=== PATIENT | male | born 1965 | race Caucasian/White ===

== ENCOUNTER 2020-04-15 12:24 | Emergency (ER) | payer SELFPAY ==
--- NOTE | 2020-04-15 13:56 | CT ---
CT cervical spine Technique: Multiple axial sections were obtained from above C1 inferiorly to the top of T2. Reconstructed sagittal and coronal images were reviewed. Findings: Degenerative change is noted between the dens and anterior arch of C1. Minimal disc space narrowing at C3-4 and C4-5. Vertebral body heights are maintained. Scattered anterior osteophytes are seen. Minimal scattered posterior osteophytes are noted. Ligamentum nuchal calcification is seen. Minimal scattered degenerative change within the apophyseal joints. No bony central or bony neural foraminal stenosis is seen. No cervical spine fracture is seen. No abnormal subluxation is appreciated. Impression: 1. Mild diffuse degenerative change. 2. Nothing acute is appreciated. Diagnostic code #2 This report was dictated in MDT
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
--- NOTE | 2020-04-15 14:12 | CR ---
Lumbar spine: AP and lateral views lumbar spine were obtained as well as coned-down lateral view centered to the lumbosacral junction. Comparison: No prior lumbar spine imaging. Mild anterior wedge deformity is noted of L1. Age of this is indeterminate. Lesser anterior wedging is noted of T11, T10 and T9 which are felt to be old. Scattered endplate osteophytes are seen. Mild disc space narrowing noted at T11-12. Other disc spaces within the lumbar spine are maintained. Pedicles are intact. Transverse and spinous processes are intact. Sacroiliac joints are normal. Impression: 1. Mild anterior wedge deformity of L1. Age of this is indeterminate. MRI would be needed to look for bone marrow edema to determine age of this finding if clinically needed. 2. Several other compression deformities within the lower thoracic spine which are likely old. 3. Mild scattered degenerative change. Diagnostic code #3 This report was dictated in MDT
== END 2020-04-15 14:41 | disposition home or self-care (01) ==
LOC: JD.ED 12:24
DX: S32.019A Unspecified fracture of first lumbar vertebra, initial encounter for closed fracture (principal); S16.1XXA Strain of muscle, fascia and tendon at neck level, initial encounter; R10.9 Unspecified abdominal pain; F17.210 Nicotine dependence, cigarettes, uncomplicated; Y04.8XXA Assault by other bodily force, initial encounter
CPT/HCPCS: 72100; 72100-26; 72125; 72125-26; 99282; 99284-25

== ENCOUNTER 2024-05-24 05:16 | Emergency (ER) | payer SELFPAY ==
[2024-05-24] MEDS: Acetaminophen/oxyCODONE 325-5 MG Tab PO ONE (06:00)
== END 2024-05-24 06:04 | disposition home or self-care (01) ==
LOC: JD.ED 05:16
DX: S30.0XXA Contusion of lower back and pelvis, initial encounter (principal); I83.893 Varicose veins of bilateral lower extremities with other complications; W19.XXXA Unspecified fall, initial encounter
CPT/HCPCS: 99283; A9270